=== PATIENT | female | born 1995 | race Asian ===

== ENCOUNTER → 2017-06-22 | Outpatient (CLI) | payer SELFPAY ==
--- NOTE | 2017-06-22 13:23 | RADIOLOGY REPORT (SQ) ---
EXAM DESCRIPTION: U/S [id number] TRNABD 1GES W/ODOP COMPLETED DATE/TIME: 06/22/2017 1:08 pm REASON FOR STUDY: ENCTR FOR SUPERVISION OF OTHER NORMAL 1ST , 1ST TRIMESTER (Z34.01) Z34.01 ENCNTR FOR SUPRVSN OF NORMAL FIRST PREG, FIRST TRIMES COMPARISON: None. TECHNIQUE: Transabdominal static and realtime grayscale images acquired of the pelvis. Additional se lected spectral and color Doppler images recorded. All images stored on PACs. bHCG: Not available LIMITATIONS: None. FINDINGS: FETUS: EGA: 12 weeks 4 days EVELIO: 12/31/2017 FHR: 171 beats per minute. CERVICAL LENGTH: 3.4 side Closed. UTERUS: No masses. RIGHT ADNEXA: Right ovary was not visualized. No adnexal free fluid. No adnexal masses. LEFT ADNEXA: Normal ovary with normal vascular flow. No adnexal free fluid. No adnexal masses. FREE FLUID: None. OTHER: No other significant finding. IMPRESSION: LIVING INTRAUTERINE . ESTIMATED GESTATIONAL AGE:12 weeks 4 days Trimester of : First trimester - 0 to 13 weeks. TECHNICAL DOCUMENTATION: JOB ID: [id number] [employer]- All Rights Reserved Reading location - IP/workstation name: [email or web address]
== END ==
LOC: RAD 12:28
PROVIDERS: ATTEND Nurse Practitioner Women's Health
DX: Z34.01 Encounter for supervision of normal first pregnancy, first trimester (principal)
CPT/HCPCS: 76801

== ENCOUNTER 2018-08-09 04:33 | Emergency (ER) | payer MEDICAID, OTHER ==
--- NOTE | 2018-08-09 08:28 | ER Document Report ---
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 While symptoms may be vague, they often include disturbance of sleep, fatigue, loss of appetite, and general loss of interest in life. While depression may be a side effect of drugs, or a reaction to a major change in your life, many cases have no known cause. If depression is acute, and related to a major loss in your life, you can expect it to clear completely with time. If you have been depressed a long time, are prone to repeated bouts of depression or low mood, or have been thinking of suicide, get help. Depression can be treated with anti-depressant medication and counselling. Long-term depression will often take a few weeks to clear, even with appropriate medication. Follow-up care is important. SUICIDAL IDEATION: Suicidal ideation is a common medical term for thoughts about suicide, which may be as detailed as a formulated plan, without the suicidal act itself. Although most people who undergo suicidal ideation do not commit suicide, some go on to make suicide attempts. The range of suicidal ideation varies greatly from fleeting to detailed planning, role playing, and unsuccessful attempts. While thoughts about suicide are common, most people do not carry out serious actions to commit suicide. Based upon your evaluation and discussion with you, we do not believe you are currently at risk to act upon your thoughts of suicide. You have agreed to return to the Emergency Department, at any time, if you feel inclined to act upon your suicidal thoughts. Overdose You have taken more medication than you should have. After your evaluation and care, it is felt that your overdose is not likely to be harmful or of any significant consequences to you and you are being discharged. In the future, you should be careful not to take more medications than what is prescribed for you. Although your overdose does not seem to be of any danger to you at this time, if you develop any unusual or unexpected symptoms after your discharge, you should return to the Emergency Department immediately for re-evaluation. FOLLOW-UP CARE: You have been provided prescriptions for Celexa 20MG daily (for depression/ruminating thoughts) and Buspar 5MG twice a day (for anxiety/calming effect/depression/sleep). You should take these medications as prescribed to help with depression and anxiety symptoms. You have a therapy appointment scheduled at [facility] on 08/11/18 at 1100. You have a medication management appointment scheduled with [facility] [place] 08/15/18 at 1830. Your was at bedside with you and is aware of plan. He has agreed to be in control of all medications (prescribed, over the counter), to check in on you and baby via phone call a couple times a day and to look at utilizing his family or day care a couple times a week. If you experience worsening or a significant change in your symptoms, notify the physician im mediately, utilize mobile crisis or return to the Emergency Department at any time for re-evaluation. Referrals: [facility] [Outside] - Follow up as needed [facility] [Provider Group] - 08/11/18 10:45 am [facility] [Provider Group] - 08/15/18 6:30 pm Original Note: ED Substance Abuse / Acc. OD - General TRAVEL OUTSIDE OF THE [place] IN LAST 30 DAYS: No <LUIS MIGUEL BARBOUR - Last Filed: 08/09/18 08:23> <SHARAD WILSON - Last Filed: 08/09/18 10:15> <KAMRON OZUNA - Last Filed: 08/09/18 10:48> - General Chief Complaint: Possible Overdose Stated Complaint: OVERDOSE Time Seen by Provider: 08/09/18 05:38 Primary Care Provider: [facility] [Provider Group] - 08/11/18 10:45 am [facility] [Provider Group] - 08/15/18 6:30 pm [facility] [Outside] - Follow up as needed - HPI Notes: Patient is a 22-year-old female who was brought to the emergency department by her after ingesting five 800 mg ibuprofen tablets. Patient states that around 345 this morning she took the ibuprofen. When asked why she took this m any patient says "I don't know what I was thinking." Patient is tearful. Patient is 7 months and reports being depressed. Patient states that she lives with her . Patient states she has no family in this area or friends. Patient states that since giving she has had minimal sleep. Patient states that her and her are supposed to go on vacation soon and that her had mentioned taking the baby and not wanting her to go. Patient is concerned that is going to take her child away from her. Patient denies a mental health history. Denies history of suicidal ideation or suicide attempt. (LUIS MIGUEL BARBOUR) Past Medical History - General Information source: Patient - Social History Smoking Status: Never Smoker Cigarette use (# per day): No Chew tobacco use (# tins/day): No Frequency of alcohol use: None Drug Abuse: None Lives with: Spouse/Significant other Family History: None Patient has suicidal ideation: No Patient has homicidal ideation: No - Medical History Medical History: Negative - Past Medical History Cardiac Medical History: Reports: Hx Hypertension Pulmonary Medical History: Reports: None EENT Medical History: Reports: None Neurological Medical History: Reports: None Endocrine Medical History: Reports: None Renal/ Medical History: Reports: None. Denies: Hx Peritoneal Dialysis Malignancy Medical History: Reports: None GI Medical History: Reports: None Musculoskeletal Medical History: Reports None Skin Medical History: Reports None Psychiatric Medical History: Reports: None Traumatic Medical History: Reports: None Infectious Medical History: Reports: None Surgical Hx: Negative Past Surgical History: Reports: None <KMLUIS MIGUEL - Last Filed: 08/09/18 08:23> Review of Systems - Review of Systems Constitutional: No symptoms reported EENT: No symptoms reported Cardiovascular: No symptoms reported Respiratory: No symptoms reported Gastrointestinal: No symptoms reported Genitourinary: No symptoms reported Female Genitourinary: No symptoms reported Musculoskeletal: No symptoms reported Skin: No symptoms reported Hematologic/Lymphatic: No symptoms reported Neurological/Psychological: See HPI <LUIS MIGUEL BARBOUR - Last Filed: 08/09/18 08:23> Physical Exam - Vital signs Interpretation: Tachycardic <LUIS MIGUEL BARBOUR - Last Filed: 08/09/18 08:23> - Vital signs Vitals: Temp Pulse Resp BP Pulse Ox 98.1 F 101 H 20 118/87 H 100 08/09/18 04:52 08/09/18 04:52 08/09/18 04:52 08/09/18 04:52 08/09/18 04:52 - Notes Notes: GENERAL: Pt. tearful, appears upset. Well-nourished. HEAD: Atraumatic, normocephalic. EYES: Pupils equal round and reactive to light, extraocular movements intact, sclera anicteric, conjunctiva are normal. ENT: Moist mucous membranes. NECK: Normal range of motion, supple without lymphadenopathy or JVD. LUNGS: Breath sounds clear to auscultation bilaterally and equal. No wheezes rales or rhonchi. HEART: Regular rate and rhythm without murmurs, rubs or gallops. ABDOMEN: Soft, nontender, normoactive bowel sounds. No guarding, no rebound. No masses appreciated. EXTREMITIES: Normal range of motion, no pitting or edema. No clubbing or cyanosis. NEUROLOGICAL: Cranial nerves II through XII grossly intact. Normal speech, normal gait. PSYCH: Tearful, appears upset. SKIN: Warm, Dry, normal turgor, no rashes or lesions noted. (LUIS MIGUEL BARBOUR) Course <LUIS MIGUEL BARBOUR - Last Filed: 08/09/18 08:23> - Laboratory Result Diagrams: 08/09/18 08:28 08/09/18 08:28 <KAMRON OZUNA - Last Filed: 08/09/18 10:48> - Re-evaluation Re-evalutation: 08/09/18 Spoke with patient's Kanu privately. Patient states that recently patient has become more aggressive and more frequent mood swings. States that his has complained of not being able to rest. Tonight he states he came home and accidentally woke up the baby at that point they started to verbally argue. Patient was mentioning threatening to go home to [facility] with her family and to take the baby. states that the patient wanted him to write in agreement that she could take the baby. states that at that time he refused stating that he believes a nutrition coordinator would need to get involved and he did not want to do this. reports that this made her more upset where she continued to be verbally aggressive. Has been states that he is unsure if she was attempting to hurt herself. Has been reports that he does not believe that this is the case as she immediately told him that she took the medication. states he brought her to the emergency department due to an episode of vomiting after eating ingestion. During initial evaluation patient is extremely tearful and upset. Patient states that she does want her at the bedside and will be upset and leave if he leaves. Patient stating that she is fine and does not need to be evaluated. Due to the intentional overdose of ibuprofen aggressive behavior and threatening to leave the country with her baby I do believe the patient at this time is a danger to herself. Explained patient the IVC process in the process of becoming medically cleared. Patient initially stated she was not going to cooperate with the blood draw or work-up. For further discussion patient states she will be cooperative as long as the comes back. Patient was moved to another room, reassessed patient, patient has been is at the bedside. Patient denies needs. Patient denies abdominal pain or nausea. Patient remains tearful, but is cooperative in agreement plan to speak with mental health. (LUIS MIGUEL BARBOUR) - Vital Signs Vital signs: Temp Pulse Resp BP Pulse Ox 98.1 F 101 H 20 118/87 H 100 08/09/18 04:52 08/09/18 04:52 08/09/18 04:52 08/09/18 04:52 08/09/18 04:52 - Laboratory Laboratory results interpreted by me: 08/09/18 08/09/18 08/09/18 07:10 08:28 08:28 RBC 5.37 H Potassium 5.1 H Calcium 10.4 H Total Protein 8.8 H Urine Protein 100 H Urine Ketones 20 H Urine Blood SMALL H Ur Leukocyte Esterase TRACE H Salicylates < 1.0 L Acetaminophen < 10 L - EKG Interpretation by Me Additional EKG results interpreted by me: 08/09/18 08:39 Patient's EKG showed normal sinus rhythm with a rate of 94, DE interval is 136, QT is 348, QTc is 08/02/1935, there is no ST elevation or ectopy. No previous EKG for comparison. (LUIS MIGUEL BARBOUR) Discharge <LUIS MIGUEL BARBOUR - Last Filed: 08/09/18 08:23> <SHARAD WILSON - Last Filed: 08/09/18 10:15> <KAMRON OZUNA - Last Filed: 08/09/18 10:48> - Discharge Clinical Impression: Overdose Qualifiers: Encounter type: initial encounter Injury intent: undetermined intent Qualified Code(s): T50.904A - Poisoning by unspecified drugs, medicaments and biological substances, undetermined, initial encounter Condition: Stable Disposition: HOME, SELF-CARE Additional Instructions: DEPRESSION: Your evaluation reveals that you have mental depression. While symptoms may be vague, they often include disturbance of sleep, fatigue, loss of appetite, and general loss of interest in life. While depression may be a side effect of drugs, or a reaction to a major change in your life, many cases have no known cause. If depression is acute, and related to a major loss in your life, you can expect it to clear completely with time. If you have been depressed a long time, are prone to repeated bouts of depression or low mood, or have been thinking of suicide, get help. Depression can be treated with anti-depressant medication and counselling. Long-term depression will often take a few weeks to clear, even with appropriate medication. Follow-up care is important. SUICIDAL IDEATION: Suicidal ideation is a common medical term for thoughts about suicide, which may be as detailed as a formulated plan, without the suicidal act itself. Although most people who undergo suicidal ideation do not commit suicide, some go on to make suicide attempts. The range of suicidal ideation varies greatly from fleeting to detailed planning, role playing, and unsuccessful attempts. While thoughts about suicide are common, most people do not carry out serious actions to commit suicide. Based upon your evaluation and discussion with you, we do not believe you are currently at risk to act upon your thoughts of suicide. You have agreed to return to the Emergency Department, at any time, if you feel inclined to act upon your suicidal thoughts. Overdose You have taken more medication than you should have. After your evaluation and care, it is felt that your overdose is not likely to be harmful or of any significant consequences to you and you are being discharged. In the future, you should be careful not to take more medications than what is prescribed for you. Although your overdose does not seem to be of any danger to you at this time, if you develop any unusual or unexpected symptoms after your discharge, you should return to the Emergency Department immediately for re-evaluation. FOLLOW-UP CARE: You have been provided prescriptions for Celexa 20MG daily (for d epression/ruminating thoughts) and Buspar 5MG twice a day (for anxiety/calming effect/depression/sleep). You should take these medications as prescribed to help with depression and anxiety symptoms. You have a therapy appointment scheduled at [facility] on 08/11/18 at 1100. You have a medication management appointment scheduled with [facility] [place] on 08/15/18 at 1830. Your was at bedside with you and is aware of plan. He has agreed to be in control of all medications (prescribed, over the counter), to check in on you and baby via phone call a couple times a day and to look at utilizing his family or day care a couple times a week. If you experience wors ening or a significant change in your symptoms, notify the physician immediately, utilize mobile crisis or return to the Emergency Department at any time for re-evaluation. Prescriptions: Buspirone HCl [Buspar 5 mg Tablet] 1 tab PO BID #28 tab Citalopram Hydrobromide [Celexa 20 mg Tablet] 20 mg PO DAILY #14 tablet Referrals: [facility] [Provider Group] - 08/11/18 10:45 am [facility] [Provider Group] - 08/15/18 6:30 pm [facility] [Outside] - Follow up as needed
[2018-08-09 08:43] LABS: APPEARANCE,URINE CLEAR; BILIRUBIN,URINE NEGATIVE (NEGATIVE); COLOR,URINE YELLOW; GLUCOSE, URINE NEGATIVE (NEGATIVE); KETONES,URINE 20 mg/dL (NEGATIVE); LEUKOCYTE ESTERASE,URINE TRACE (NEGATIVE); NITRITE,URINE NEGATIVE (NEGATIVE); PROTEIN,URINE 100 mg/dL (NEGATIVE); URINE SPECIFIC GRAVITY 1.017; UROBILINOGEN,URINE NEGATIVE mg/dL (<2.0)
[2018-08-09 08:43] LABS: ABSOLUTE BASOPHILS # (AUTO) 0.1 10^3/uL (0.0-0.2); ABSOLUTE LYMPHOCYTES (AUTO) 1.8 10^3/uL (0.5-4.7); ABSOLUTE MONOCYTES (AUTO) 0.4 10^3/uL (0.1-1.4); ABSOLUTE NEUT (AUTO) 7.7 10^3/uL (1.7-8.2); BASOPHILS % (AUTO) 0.6 % (0-2); EOSINOPHILS % (AUTO) 0.4 % (0-6); HEMATOCRIT 44.5 % (36.0-47.0); HEMOGLOBIN 15.1 g/dL (12.0-15.5); LYMPHOCYTES % (AUTO) 18.2 % (13-45); MEAN CORPUSCULAR HEMOGLOBIN 28.1 pg (27.0-33.4); MEAN CORPUSCULAR HGB CONC 33.8 g/dL (32.0-36.0); MEAN CORPUSCULAR VOLUME 83 fl (80-97); MONOCYTES % (AUTO) 4.3 % (3-13); PLATELET COUNT 360 10^3/uL (150-450); RED BLOOD COUNT 5.37 10^6/uL (3.72-5.28); RED CELL DISTRIBUTION WIDTH 13.3 % (11.5-14.0); SEGMENTED NEUTROPHILS % (AUTO) 76.5 % (42-78); TOTAL CELLS COUNTED % (AUTO) 100 %; WHITE BLOOD COUNT 10.1 10^3/uL (4.0-10.5)
[2018-08-09 08:53] LABS: URINE AMPHETAMINES SCREEN NEGATIVE; URINE BARBITURATES SCREEN NEGATIVE; URINE BENZODIAZEPINES SCREEN NEGATIVE; URINE COCAINE SCREEN NEGATIVE; URINE MARIJUANA (THC) SCREEN NEGATIVE; URINE METHADONE SCREEN NEGATIVE; URINE PHENCYCLIDINE SCREEN NEGATIVE
[2018-08-09 09:04] LABS: ALANINE AMINOTRANSFERASE 25 U/L (9-52); ALBUMIN 4.9 g/dL (3.5-5.0); ALKALINE PHOSPHATASE 76 U/L (38-126); ANION GAP 15 (5-19); ASPARTATE AMINO TRANSFERASE 18 U/L (14-36); BILIRUBIN,DIRECT 0.3 mg/dL (0.0-0.4); BILIRUBIN,TOTAL 0.9 mg/dL (0.2-1.3); BLOOD UREA NITROGEN 14 mg/dL (7-20); CALCIUM 10.4 mg/dL (8.4-10.2); CARBON DIOXIDE 22 mmol/L (22-30); CHLORIDE 105 mmol/L (98-107); GLUCOSE 107 mg/dL (75-110); POTASSIUM 5.1 mmol/L (3.6-5.0); SODIUM 142.2 mmol/L (137-145); TOTAL PROTEIN 8.8 g/dL (6.3-8.2)
[2018-08-09 09:06] LABS: ACETAMINOPHEN < 10 ug/mL (10-30); ALCOHOL < 10 mg/dL (NONE DETECTED); SALICYLATE < 1.0 mg/dL (2.0-20.0)
--- NOTE | 2018-08-09 09:28 | EKG REPORT ---
SEVERITY:- NORMAL ECG - SINUS RHYTHM : Confirmed by: Lilia Berg MD 09-Aug-2018 09:27:48
--- NOTE | 2018-08-09 09:49 | ER Document Report ---
Doctor's Note Notes: 08/09/18 09:48 Rounds: Chart reviewed and patient interviewed. Patient is being evaluated for depression. She is 7 months . Having difficulties with her . Lab studies were all essentially normal. Vital signs were all essentially normal. Patient appears to be medically stable for transfer or discharge. Karlie Pardo MD
[2018-08-09 10:47] VITALS: BP 122/80
--- NOTE | 2018-08-13 11:37 | PSYCHOLOGICAL NOTE ---
Psych Note - Psych Note Date seen by psych provider: 08/09/18 Time seen by psych provider: 08:02 - Evaluation from [id number], separate conversation with patient and . 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 Medical documentation from initial interaction patient reported she took 5 pills of Ibuprofen at 0345, said she didn't know what she was thinking and was tearful. She stated "the past few weeks I have had increased depression, my works 12 hours shifts and is off only Sat and Sun, all he odes is play video games, as a I need attention." She reported last night they went to bed, he played video games, she fell asleep and he woke her for sexual intercourse then after he went to sleep right away. She stated "I asked him to stop playing his game, to talk to me until I fell asleep but he did not." She acknowledged she had her first baby 7 months ago, was diagnosed with post depression, she was not prescribed medication as she had breast fed the first 2 months. 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 She denied wanting to hurt self or take her life. She denied current SI as well as previous attempts. She denied personal history of MH and family history. Patient was alert and oriented to self, person, place, time and situation. Mood was depressed with congruent affect as evidenced by tearful and crying at appropriate times (being homesick, not getting the attention she wants from ). She denied current SI/HI, said she took the 5 Ibuprofen across the span of yesterday not at once and denied previous attempts. She did not appear to be responding to internal stimuli as evidenced by fair eye contact, staying on topic, answering questions appropriately when addressed and carrying on dialogue conversation. Thought processes were linear and organized. Conversational speech was within normal limits for rate, tone and prosody. Intellectual abilities are estimated to be average. Insight, judgment and impulse control were fair as evidenced by discussing and processing triggers to depressive presentation. Spoke to separately. He reported patient "has been upset the past couple days." He admitted they have been having marital issues with lots of verbal arguing and it has been consistent lately. he stated he had been on swing shifts at work ([employer]) and had a Biology Final yesterday so he was not giving attention to . He acknowledged "when I got home I woke the baby which upset her since she had a headache." He reported "we argued a little bit, they talked about her parents in [facility], how she wanted to take the baby for a visit, he mentioned it was not fair because his work and school does not allow for time off to travel like that, since they were and she would be taking baby out of country they would need a Experimental Welder for document that needed to be notarized, and she perceived that information wrong like he was trying to keep her from going or take the baby from her." He stated "she got really flustered, came downstairs and said she took a lot of Ibuprofen (5), they tried to make her vomit, she didn't want to come to the ED but he made her." He stated "she now feels hurt by the marriage, doesn't trust me now and thinks I am using this to try to plot against her, feels alone and alienated here in the hospital." He identified "her mood dropped after having the baby." He stated "I don't want her to feel alone and I hope this hasn't made the marriage worse." He described patient as a great mother. He stated he would check with his family and/or daycare to give patient a couple days to herself. 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 Jennifer MD., includes: Add Celexa 20MG daily for depression/ruminating thoughts Ass Buspar 5MG twice a day for anxiety/calming effect/depression/sleep Impression/Plan: Patient is cleared from acute psychiatric services. She denied current SI/HI, said she took the 5 Ibuprofen over the course of the day not at once and denied previous attempts. included in plan of care. He agreed to be in control of all medications (current ones being prescribed, over the counter and any others) and administration. He also agreed to check in with patient and baby via telephone calls 2-3 times a day. He reported he would try to utilize his family (reside in [facility]) or daycare a couple days a week to give patient a break and time to herself. Patient has follow up appointment for [facility] 08[facility]11/18 at 1100 and medication management at [facility] on 08/15/18 at 1830. Patient and provided with the outpatient MH resource sheet which documented appointment dates and times as well as highlighted [facility] MCM for crisis/talk therapy/linkage. Consulted with Dr. Fowler regarding the management and care of patient. ED Physician in agreement with recommendations.
== END 2018-08-09 10:47 | disposition home or self-care (01) ==
LOC: ER 04:33
DX: T39.314A Poisoning by propionic acid derivatives, undetermined, initial encounter (principal); R11.10 Vomiting, unspecified; R00.0 Tachycardia, unspecified; Z63.0 Problems in relationship with spouse or partner; I10 Essential (primary) hypertension
CPT/HCPCS: 36415; 80053; 80307; 81001; 84703; 85025; 93005; 93010; 99284